=== PATIENT | male | born 1955 | race Caucasian/White ===

== ENCOUNTER 2020-05-07 18:57 | Outpatient (REF) | payer BC, SELFPAY ==
[2020-05-07 21:46] LABS: Calculated LDL 119 mg/dL (<100); Cholesterol 205 mg/dL (<200); HDL Cholesterol 42 mg/dL (40-60); Triglyceride 222 mg/dL (<150)
[2020-05-10 10:36] LABS: PSA, Screening 1.4 ng/mL (0.0-4.5)
== END 2020-05-07 19:17 ==
LOC: LBN 18:57
PROVIDERS: PCP Emergency Medicine; Visit Provider Emergency Medicine
DX: Z00.00 Encounter for general adult medical examination without abnormal findings (principal); Z13.220 Encounter for screening for lipoid disorders; Z12.5 Encounter for screening for malignant neoplasm of prostate
CPT/HCPCS: 80061; 84153

== ENCOUNTER 2024-06-01 19:08 | Emergency (ER) | payer OTHER, SELFPAY ==
[2024-06-01 19:09] VITALS: BP 127/77; PULSE 56; RESP 16; TEMP 36.8; O2SAT 98
--- NOTE | 2024-06-01 19:15 | DI.RAD_ITS ---
Exam(s) XR HUMERUS LT EXAM: XR HUMERUS LT CLINICAL HISTORY: L humerus deformity. TECHNIQUE: 2D digital imaging was performed. COMPARISON: No exams were available for comparison FINDINGS: Two views There are multiple fractures of left humerus. There is a mildly displaced transverse fracture in the proximal diaphysis and there is a separate obl ique fracture at the midshaft the humerus with some angulation and displacement. There is no dislocation of the glenohumeral joint. Bone density appears normal and there are no osse ous lesions. IMPRESSION: Bilevel fractures of the left humerus as described above. No osseous lesions. DATA REPOSITORY: RADIATION DOSE DELIVERED:
--- NOTE | 2024-06-01 19:16 | ED.GENADUL_ITS ---
Discharge Plan Disposition Patient Disposition: Home Condition: Stable Discharge Details Clinical Impression: Closed comminuted fracture of left humerus Primary Care Provider: Georgi Tidwell ED Provider: Tony Flores Home Meds and New Rx's Prescriptions: Continued famotidine 20 mg tablet 20 mg PO BID Qty: 180 3RF acetaminophen [Acetaminophen Extra Strength] 500 MG tablet 1,000 mg PO TID PRN PRNQty: 100 3RF Discharge Instructions Instructions: Acute compartment syndrome, Upper Arm Fracture ED Additional Instructions: You were seen in the emergency department for your comminuted closed fracture of your left humerus. I spoke with [facility] orthopedics, who requested additional x- rays and we placed you in a coaptation humerus splint. He will be much more comfortable to rest in a recliner chair including sleeping in a recliner at night, you need to remain in your splint / until cleared by orthopedics. Please rest ice packs around your fracture site while resting, ice to complete numbness then let rewarm, repeat as many times as desired. Please use therapeutic dosing of Tylenol (acetamenophen) & Advil (ibuprofen) in an alternating fashion as follows: Take 1000mg of Tylenol every 6 hours without missing doses- that is 4 times per day. Prison in between the Tylenol dosings, take 400-600mg of Advil also on a 6 hour schedule, that is also 4 times per day. The daily maximum dosing of Tylenol is 4000mg, and the daily maximum dosing of Advil is 2400mg. This is safe to do for weeks. Please note that some common cold medications & prescription pain medications may contain acetamenophen and you need to read OTC drug labels and factor that in to maximum daily dosings. Use the provided oxycodone sparingly for breakthrough pain, if you run out of this please contact orthopedics for further long-term pain control prescriptions as this fracture is quite painful. Please return to the emergency department at once for signs of neurovascular compromise like loss of your radial pulse in the left arm, complete numbness, skin and temperature changes.- see the attached education materials on compartment syndrome- read them and watch for any signs- present immediately to ortho-capable hospital. Referrals: [facility] [Provider Group] [facility] [Outside] (Ask for TRAUMA CLINIC) Georgi Tidwell, CARDIAC NURSE PRACTITIONER [Primary Care Provider] - Discharge Data Discharge Date/Time-TO BE ENTERED AT DEPARTURE: 06/01/24 23:10 HPI General Date/Time Provider Initiated Documentation: 06/01/24 19:16 . HPI Narrative: 68 year-old male presents to ED today by POV/ambulating with a chief complaint of fall from bed of truck about 4 feet onto left shoulder/upper arm, right hand dominant with onset just prior to arrival. Quality described as severe upper arm pain only, denies shoulder or elbow pain, endorses tingling in the forearm, no radiation to open fracture, breaks in the skin, numbness to hand, temperature changes to hand, neck pain, head strike, other trauma. Severity is described as severe. Palliating factors include nothing specific attempted. Provoking factors include nothing specific. Events leading up to the incident/Associated Symptoms: Patient endorses rotator cuff repair in remote history. Patient not anticoagulated. Related Data Home Medications ?Medication ?Instructions ?Recorded ?Confirmed acetaminophen 500 mg tablet 1,000 mg (2 x 500 mg) PO TID PRN 07/24/17 06/01/24 (Acetaminophen Extra Strength) PRN #100 tabs famotidine 20 mg tablet 20 mg PO BID #180 tabs 02/13/24 06/01/24 Previous Rx's ?Medication ?Instructions ?Recorded acetaminophen 500 mg tablet 1,000 mg (2 x 500 mg) PO TID PRN 07/24/17 (Acetaminophen Extra Strength) PRN #100 tabs famotidine 20 mg tablet 20 mg PO BID #180 tabs 02/13/24 Allergies Allergy/AdvReac Type Severity Reaction Status Date / Time No Known Allergies Allergy Verified 06/01/24 19:13 General Stated Complaint: Orthopedic DIONISIO: 4 Review of Systems All systems reviewed & are unremarkable except as noted in HPI and below Exam Narrative Exam Narrative: GENERAL APPEARANCE: Well-nourished, non-toxic, awake and alert, atraumatic, no acute distress. SKIN: Warm, pink, dry, intact, without rashes/lesions/ulcerations. HEAD: Normocephalic, atraumatic, normal hair distribution for gender/age. EYES: Normal conjunctiva, no exudates on lids/lashes. ENT: Nares patent, no circumoral cyanosis, no facial swelling NECK: Supple, trachea midline, painless cervical ROM. LUNGS/CHEST: Lungs CTA bilaterally - no rhonchi/rales/wheezes diffusely, non- labored respirations, normal A/P diameter, symmetrical expansion, no chest wall deformity HEART (CV/PV): Regular rate and rhythm without murmur, L radial pulse 2+, no peripheral edema, no JVD. ABDOMEN: Soft, non-distended, no guarding. MSK: Normal ROM, no swelling/deformity to R UE or bilat LEs, moving all extremities without weakness, no cyanosis, spine midline without tenderness, normal curvature, deformity to L upper arm with swelling, supervisor order takers strength intact L hand, sensation intact distal to elbow, no clavicle tenderness NEURO: Mental Status AAOx4 - alert to person, place, time, events No facial droop, no forehead involvement. Motor: No focal weakness - strength 5/5 in all extremities save L UE. Sensory: sensation intact to light touch globally. Gait normal: patient ambulated without ataxia into ED room. PSYCH: euthymic, cooperative, pleasant, appropriate speech Course Vital Signs Vital signs: Vital Signs Temperature 36.8 C 06/01/24 19:09 Pulse 56 L 06/01/24 19:09 Respiratory Rate 16 06/01/24 19:09 Blood Pressure 127/77 06/01/24 19:09 Pulse Oximetry 98 06/01/24 19:09 Temperature 36.8 C 06/01/24 19:09 Pulse 56 L 06/01/24 19:09 Respiratory Rate 16 06/01/24 19:09 Blood Pressure 127/77 06/01/24 19:09 Pulse Oximetry 98 06/01/24 19:09 Pain Level 8 06/01/24 19:09 Procedures Other Description: Patient was placed in a long-arm coaptation splint after padding the upper arm from forearm through shoulder extensively I used a 5 x 30 piece of Ortho-Glass to make a stirrup around the upper arm and apply gentle pressure inward until the splint had hardened and then wrapped it with Bill wrap placed him in a shoulder immobilizer in 90 degrees flexion at the elbow, he was neurovascularly intact with intact left radial pulse and supervisor order takers strength and sensation in the left hand pre and post splint application, no complications during splinting. Medical Decision Making This dictation utilizes [id number] dictation software and may contain unedited grammatical errors. 68 year-old male presents to ED today by POV/ambulating with a chief complaint of fall from bed of truck about 4 feet onto left shoulder/upper arm, right hand dominant with onset just prior to arrival. Quality described as severe upper arm pain only, denies shoulder or elbow pain, endorses tingling in the forearm, no radiation to open fracture, breaks in the skin, numbness to hand, temperature changes to hand, neck pain, head strike, other trauma. Severity is described as severe. Palliating factors include nothing specific attempted. Provoking factors include nothing specific. Events leading up to the incident/Associated Symptoms: Patient endorses rotator cuff repair in remote history. Patients' medical history: Rosacea, hiatal hernia, COPD, BPH, status post cholecystectomy. Family and social history: Lives at home with his , no recent travel, no sick cont acts. Pertinent exam findings / vital signs include left radial pulse 2+, supervisor order takers strength 4+ out of 5 due to pain, no sensory deficit of forearm, severe tenderness in the upper left arm, no crepitus to elbow or clavicle, no midline vertebral tenderness, no other signs of trauma. Differential / pathologies of concern include fracture, hematoma. Diagnostic studies of: -XR left humerus-shows comminuted closed left humerus fracture. -Per [facility] trauma I ordered XR shoulder and elbow as well as post coaptation splint application XRs Interventions of: -Provided 650mg APAP IV, 15mg Toradol IV, 5mg Oxycodone PO. Oxycodone to go ED Course/Assessment/Plan: 60-year-old male fell from a truck injuring his left humerus, new comminuted complex fracture of the humerus only without other associated trauma, he is neurovascularly intact in left hand and forearm, he is right-hand dominant, he tolerated coaptation splint well, he is welcome to follow-up with our orthopedic team tomorrow by phone to see if they can handle this case but I did consult with [facility] trauma team who can see the patient later this week in trauma clinic. He was sent home with short to go pack of oxycodone, I stressed he needs to aggressively place ice packs around his coaptation splint to help with swelling control and counseled him for a considerable length watch for any signs of compartment syndrome and return immediately to a hospital with orthopedic capability for fasciotomy for any such symptoms. Post-splint application shows persistent angulation- needs ortho f/u. Findings not consistent with open fracture, head trauma, neurovascular compromise. Disposition of Closed Comminuted Fracture of Left Humerus. Patient verbalized understanding of the plan and return to ED criteria and engaged in shared decision making. Medical Records Medical records reviewed: Yes I reviewed the patient's medical records. Imaging Data Radiologic Study: Attestation: I personally reviewed and interpreted this imaging study as follows: Imaging: X-Ray Radiologist's impression: Exam: XR Left Humerus Exam date and time: 06/01/2024 7:50 PM Age: 68 years old Clinical indication: Injury or trauma; Blunt trauma (contusions or hematomas); Arm, upper; Left; Patient HX: L humerus deformity, S/P fall TECHNIQUE: Imaging protocol: Radiologic exam of the left humerus. Views: 2 or more views. COMPARISON: CR CHEST 2 VIEWS PA,LAT 10/22/2017 9:36 AM FINDINGS: Bones/joints: Multifocal fracture of the left humerus. Proximal humeral metaphyseal fracture. Distal humeral diametaphyseal fracture. There is displacement and angulation of the distal fracture. The distal fracture has an oblique orientation. The proximal fracture is more transverse in orientation. Proximal fracture with minor displacement. No dislocation of glenohumeral joint. Subcortical cysts are suggested of the humeral head consistent with chronic degenerative change. Soft tissues: No soft tissue gas or foreign body. IMPRESSION: Multipart left humeral shaft fracture. Dictated and Authenticated by: Gopal Fields MD. Radiologic Study #2: Attestation: I personally reviewed and interpreted this imaging study as follows: Imaging: X-Ray Radiologist's impression: Exam: XR Left Shoulder Exam date and time: 06/01/2024 9:19 PM Age: 68 years old Clinical indication: Injury or trauma; Fall; Blunt trauma (contusions or hematomas); Left; Injury date: 06/01/24; Injury details: Fell 4 ft out of truck; Prior surgery; Surgery date: 6+ months; Surgery type: Shoulder surgery TECHNIQUE: Imaging protocol: Radiologic exam of the left shoulder. Views: 2 or more views. COMPARISON: CR XR HUMERUS LT 06/01/2024 7:50 PM FINDINGS: Bones/joints: Proximal humeral fracture at the proximal humeral metaphysis. This is a transversely oriented fracture with mild displacement. No dislocation of glenohumeral joint. Subcortical cystic type lesions of the humeral head suggesting chronic degeneration. AC joint degenerative disease of severe appearance. No clavicular fracture or AC separation. No scapular fracture evident. Left upper ribs are unremarkable. Lungs: Left upper lung field is clear. Soft tissues: No soft tissue foreign body or soft tissue emphysema. IMPRESSION: 1. Proximal humeral metaphyseal transverse fracture with mild displacement. 2. No glenohumeral dislocation. 3. Severe AC joint degeneration. Dictated and Authenticated by: Gopal Fields MD. Radiologic Study #3: Attestation: I personally reviewed and interpreted this imaging study as follows: Imaging: X-Ray Radiologist's impression: Exam: XR Left Elbow Exam date and time: 06/01/2024 9:23 PM Age: 68 years old Clinical indication: Injury or trauma; Fall; Blunt trauma (contusions or hematomas); Elbow; Left; Injury date: 06/01/24; Injury details: Fell out of truck 4 ft TECHNIQUE: Imaging protocol: Radiologic exam of the left elbow. Views: 3 or more views. COMPARISON: CR XR SHOULDER LT COMPLETE 2+V 06/01/2024 9:19 PM FINDINGS: Bones/joints: Displaced distal humeral diametaphyseal oblique fracture. Elbow joint is in alignment. No dislocation. No acute fracture of the proximal radius or ulna. No fat pad elevation. Soft tissues: No acute soft tissue changes in the region of the elbow. IMPRESSION: 1. Intact elbow joint. 2. Distal humeral diametaphyseal displaced oblique fracture. Dictated and Authenticated by: Gopal Fields MD. Radiologic Study #4: Attestation: I personally reviewed and interpreted this imaging study as follows: Imaging: X-Ray Radiologist's impression: Exam: XR Left Humerus Exam date and time: 06/01/2024 10:47 PM Age: 68 years old Clinical indication: Screening exam; Post splint application TECHNIQUE: Imaging protocol: Radiologic exam of the left humerus. Views: 2 or more views. COMPARISON: CR XR HUMERUS LT 06/01/2024 7:50 PM FINDINGS: Bones/joints: Splint applied to the left upper arm. Humeral fractures are still identified. There is angulation at the distal humeral fracture. Orthopedic surgeon consultation is recommended. Soft tissues: Normal. IMPRESSION: 1. Posterior splint applied to the arm and elbow region. 2. Fracture planes of the humerus are still identified. There is persistent displacement and angulation of the distal fracture. Dictated and Authenticated by: Gopal Fields MD. Quality:SDOH Health Related Social Needs: No Data to Display PFSH All Active Problems (Updated 06/01/24 @ 21:33 by LAZARO Swanson) Closed comminuted fracture of left humerus (Acute) Smoker (Acute) Quit approximately 6 to 8 years ago from 2021. 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 2014 ED (erectile dysfunction) (Acute) Chronic obstructive lung disease (Acute) 12/08; NEG STRESS TEST Cataract (Acute) Benign prostatic hyperplasia (Acute) Medical History Tear of left rotator cuff Repaired 2017 Surgical History Status post cholecystectomy STRESS TEST (~12/2006) NEG EGD - MAC (~07/2009) Colonoscopy - MAC 07/14 Cholecystectomy (~2000) GIBRAN Family History Mother , AGE 96 No problems noted. Father , AGE 62 Asthma Sister No problems noted. Sister , AGE 60 Ovarian cancer Sister , AGE 64 Brain cancer Sister No problems noted. Brother , AGE 65 Lung cancer Social History Smoking/Tobacco Use Status: Current-Occasional Tobacco: How many years used: 30 Quit status: has quit before Second Hand Exposure: Yes Smoking risk assessment performed?: Yes Alcohol Intake: former Drug use: Never Substance use type: does not use Adopted: No Caregiver/Support person: No Foster care: No Household members: spouse Housing: house Number of Children: 2 number of grandchildren: 3 Communication Needs: Hard of Hearing Education Level: high school Do you need help understanding health information?: Rarely current occupation: [employer] Pets and animals: Yes Pets and animals: dog(s) Sexually active: No Do you think of yourself as: straight/heterosexual Current gender identity: male What is your relationship status?: How often do you talk on the phone with friends or family?: once per week How often do you get together with friends or relatives?: decline to answer How often do you attend nondenominational or caodaism services?: decline to answer Do you belong to any clubs or organized social groups?: no Panel score (0-1 are the most socially isolated patients): 1 What type of physical activity do you participate in: other Details: work Duration: < 15 minutes/day Frequency: 1-2 times per week Sybil/Baptist: No preference Special sybil needs: No Agree to transfusion: No Seatbelt use: sometimes Helmet use: No Drive intox or ride w/intox taxi cab driver: No Working smoke detector in home: Yes Carbon monox detector in home: No Firearms in home: Yes Firearms unloaded and locked: Yes Do you feel safe at home: Yes Do you feel safe in your relationship?: Yes Victim of physical abuse: No Victim of emotional abuse: No Victim of sexual abuse: No
[2024-06-01] MEDS: ACETAMINOPHEN 650 MG/65 ML BAG 260 MG IVPB (19:38)
[2024-06-01] MEDS: Ketorolac 15 MG/ML VIAL IVP (19:38)
--- OUTSIDE RECORDS SUMMARY | 2024-06-01 20:33 | XMS_ITS | Encounter Summary ---
Author Organization [facility] Address [facility] [place] [address] Care Team Providers Care Lining Presser Name Role Phone Tuan Castro MD, John Primary Care Provider [phone] Encounter Details Date Type Department Care Team (Late st Contact Info) Description 06/01/2024 8:10 PM EST Ancillary Procedure Radiology Library at [facility] [place] [id number] Tacos Lockhart MD [facility] [place] [address] Arrived Social History Tobacco Use Types Packs/Day Years Used Date Smoking Tobacco: Never Assessed Sex and Gender Information Value Date Recorded Sex Assigned at Not on file Gender Identity Not on file Sexual Orientation Not on file documented as of this encounter Plan of Treatment Not on file documented as of this encounter Procedures Procedure Name Priority Date/Time Associated Diagnosis Comments FILM LIBRARY STORAGE ONLY DX UPPER EXTREMITY Routine 06/01/2024 8:09 PM EST documented in this encounter Results * Film Library- Storage Only DX Upper Extremity (06/01/2024 8:09 PM EST) Narrative [facility] - 06/01/2024 8:09 PM EST This exam is auto-finalizing. It's purpose is for storage only. Tacos Lockhart MD IMG FILM LIBRARY ORD ERABLES [place], [place] documented in this encounter Visit Diagnoses Not on filedocumented in this encounter Care Teams Lining Presser Relationship Specialty Start Date End Date Dhaval Dickerson MD [address] [place] [address] PCP - General 11/23/10 documented as of this encounter
--- OUTSIDE RECORDS SUMMARY | 2024-06-01 20:33 | XMS_ITS | Referral Summary ---
Author Organization [facility] Address [address] [place] [address] Care Team Providers Care Computer Discovery Teacher Name Role Phone Unknown, Provider Primary Care Provider Unava ilable Social History Tobacco Use Types Packs/Day Years Used Date Smoking Tobacco: Never Assessed Sex and Gender Information Value Date Recorded Sex Assigned at Not on file Legal Sex Male 18:48 EST Gender Identity Not on file Sexual Orientation Not on file Plan of Treatment Not on file Care Teams Computer Discovery Teacher Relationship Specialty Start Date End Date Unknown, Provider, PCP - General 07/07/09
--- OUTSIDE RECORDS SUMMARY | 2024-06-01 20:33 | XMS_ITS | Clinical Summary ---
Author Organization [facility] Address [address] [place] [address] Care Team Providers Care General Ii Farmworker Name Role Phone Unknown, Provider MD Primary Care Provider Unava ilable Social History Tobacco Use Types Packs/Day Years Used Date Smoking Tobacco: Never Assessed Sex and Gender Information Value Date Recorded Sex Assigned at Not on file Legal Sex Male 18:48 EST Gender Identity Not on file Sexual Orientation Not on file Plan of Treatment Health Maintenance Due Date Last Done Comments Hepatitis C Screen 1955 Fall Risk Screening 11/17/2020 COVID-19 Vaccine (2023-25 season) 2024 RSV Immunization ( o r 60+ Years) (1 - 1-dose 75+ series) 11/17/2030 Care Teams General Ii Farmworker Relationship Specialty Start Date End Date Unknown, Provider, PCP - General 07/07/09
--- OUTSIDE RECORDS SUMMARY | 2024-06-01 20:33 | XMS_ITS | Encounter Summary ---
Author Organization [facility] Address [address] [place] [id number] Care Team Providers Care Institutional Research Coordinator Name Role Phone Unknown, Provider Primary Care Provider Unava ilable Encounter Details Date Type Department Care Team (Late st Contact Info) Description 05/08/2020 Lab Requisition [facility] Pathology & Laboratory Medicine - [address] [id number] Outr Resulting Lab, Provider Social History Tobacco Use Types Packs/Day Years [...] Procedure Name Priority Date/Time Associated Diagnosis Comments PSA TOTAL, DIAGNOSTIC Routine 05/07/2020 11:50 EST documented in this encounter Results * PSA TOTAL, DIAGNOSTIC (05/07/2020 11:50 EST) PSA 1.4 0.0 - 4.5 ng/mL 05/10/2020 10:30 EST [facility] Blood VENOUS BLOOD / Unknown 05/07/2020 11:50 EST 05/09/2020 17:19 EST Narrative [facility] - 05/10/2020 10:30 EST NOTE: Serum PSA concentration should not be interpreted as absolute evidence for the presence or absence of malignant disease. Assayed on Siemens ADVIA Attune Liveaur XPT using chemiluminescent technology.??Values obtained by using different assay methods cannot be used interchangeably. us Provider Outr Resulting Lab CHEMISTRY & BLOOD GA S ORDERABLES Final Result [facility] [address] [place] [address] documented in this encounter Visit Diagnoses Not on filedocumented in this encounter Care Teams Institutional Research Coordinator Relationship Specialty Start Date End Date Unknown, Provider, PCP - General 07/07/09 documented as of this encounter
--- OUTSIDE RECORDS SUMMARY | 2024-06-01 20:33 | XMS_ITS | Encounter Summary ---
Author Organization [facility] Address [address] [place] [address] Care Team Providers Care Private Equity Associate Name Role Phone Unknown, Provider Primary Care Provider Unava ilable Encounter Details Date Type Department Care Team (Late st Contact Info) Description 07/07/2009 Orders Only [address] [address] Richy Cohen MD [address] [place] [address] Social History Tobacco Use Types Packs/Day Years [...] Procedure Name Priority Date/Time Associated Diagnosis Comments SURGICAL PATHOLOGY Routine 07/07/2009 0:00 EST documented in this encounter Results * SURGICAL PATHOLOGY (07/07/2009 0:00 EST) Pathology Report: SURGICAL PATHOLOGY REPORT ? Reports generated via electronic interface contain original data; ? however they are lacking the format of the original report. ? Caution should be taken when reading/interpreti ng unformatted reports. ? Name: ? DAMIAN, NESSA Harrison ? Accession #: ? [id number] ? : ? 1955 (Age: 53) ??M ? Collect Date: ? 07/07/2009 ? Location: ? [facility] ? Receive Date: ? 07/07/2009 ? Provider: RICHY WALKO MD ? Copy to: NOAH F DEVENDRA DO ? Final Pathologic Diagnosis: ? A. ?Duodenum, 2nd portion, biopsy: ? 1. ?Focal epithelial foveolar metaplasia. ??See comment. ? B. ?Stomach, antrum, biopsy: ? 1. ?Antral mucosa with reactive foveolar hyperplastic changes, ? suggestive of reactive gastropathy. ? 2. ? No Helicobacter pylori-like organisms identified on H+E-stained sections. C. ?Stomach, body, biopsy: ? 1. ?Oxyntic mucosa with capillary congestion, otherwise unremarkable. ?? D. ?Ileocecal valve, biopsy: ? 1. ?Intestinal mucosa with focal acute inflammation. ? 2. ? Colonic mucosa with no specific histopathologic diagnosis. ? E. ?Colon, descending, polyp, biopsy: ? 1. ?Tubular adenoma (1 piece); no high grade dysplasia. ? 2. ?? Colonic mucosa (1 piece) with no specific histopathologic diagnosis. ? Comment: ? In specimen (A), the presence of foveolar metaplasia raises the possibility of peptic duodenitis. ??(Dr. Taylor)/kmm ? Document reviewed and electronically signed by: ? Chato Ortega MD ? Report ??Date: 07/12/2009 16:51 ? By the signature above, the attending physician certifies that he/she has ? personally conducted a gross and/or microscopic examination of the described ? specimens and rendered or confirmed the above diagnosis. ? Specimen(s) Received: ? A. ?Bx duodenum 2nd portion ? B. ? Bx gastric antrum ? C. ? Bx gastric body ? D. ? Bx ileocecal valve ? E. ? Descending colon polyp ? Clinical History: ? Dyspepsia; A-C ??EGD; D+E - colonoscopy ? Gross Description: ? Received in [facility] solution labelled Damian, Nessa and biopsy ? duodenum 2nd portion are two pink-montelongo irregular soft tissues, each 0.3 x 0.2 x 0.2 cm. ??Submitted in toto as (A). ? Received in [facility]'s solution labelled Damian, Nessa and biopsy gastric ?? antrum are three pink-montelongo irregular soft tissues ranging from 0.1 x 0.1 x 0.1 ?? cm to 0.2 x 0.2 x 0.2 cm. ??Submitted in toto as (B). ? Received in [facility]'s solution labelled Damian, Nessa and biopsy gastric ?? body are two pink-montelongo irregular soft tissues, 0.2 x 0.2 x 0.2 cm and 0.5 x 0.2 x 0.1 cm. ??Submitted in toto as (C). ? Received in [facility]'s solution labelled Nessa Salgado and biopsy ileocecal valve are two pink-montelongo irregular soft tissues, each 0.3 x 0.2 x 0.2 cm. ? Submitted in toto as (D). ? Received in [facility]'s solution labelled Nessa Salgado and descending colon polyp are two pink-montelongo irregular soft tissues, 0.2 x 0.2 x 0.2 cm and 0.3 x 0.2 x 0.2 cm. ??Submitted in toto as (E). ??(Emily Driscoll)/delia ? End of Report ? [facility] 07/07/2009 07/07/2009 17: 54 EST us Richy Cohen MD PATHOLOGY ORDERABLES Final Resul t [facility] [address] [place] [address] documented in this encounter Visit Diagnoses Not on filedocumented in this encounter Care Teams Private Equity Associate Relationship Specialty Start Date End Date Unknown, Provider, PCP - General 07/07/09 documented as of this encounter
--- OUTSIDE RECORDS SUMMARY | 2024-06-01 20:33 | XMS_ITS | Clinical Summary ---
Author Organization [facility] [place] [address] Care Team Providers Care [employer] Sales Engineer Name Role Phone Tuan Castro MD, John Primary Care Provider [phone] Allergies No known active allergies Encounters Date Type Department Care Team Description 06/01/2024 8:10 PM EST Ancillary Procedure Radiology Library at [facility] [place] [address] Tacos Lockhart MD Arrived from Last 3 Months Social History Tobacco Use Types Packs/Day Years Used Date Smoking Tobacco: Never Assessed Sex and Gender Information Value Date Recorded Sex Assigned at Not on file Gender Identity Not on file Sexual Orientation Not on file Plan of Treatment Health Maintenance Due Date Last Done Comments CT Colonography 1955 Colonoscopy 1955 Colorectal Cancer Screening 1955 FIT DNA 1955 FIT 1955 Sigmoidoscopy (10 year) with FIT yearly 1955 Sigmoidoscopy 1955 Hepatitis C Screening 11/17/1973 Lipid Screening 11/17/1973 Tetanus/Diphtheria/Pertussis Vaccines (1 - Tdap) 11/17 Pneumoccocal Vaccine: 65+ (1 of 1 - PCV) 11/17/2005 Zoster vaccine (1 of 2) 11/17/2005 Advance Directive 11/17/2010 Covid-19 Vaccine (1 - season) 2024 Influenza (Flu) vaccine (1 o f 1 - Influenza standard series) 02/03/2024 Procedures Procedure Name Priority Date/Time Associated Diagnosis Comments FILM LIBRARY STORAGE ONLY DX UPPER EXTREMITY Routine 06/01/2024 8:09 PM EST from Last 3 Months Results * Film Library- Storage Only DX Upper Extremity (06/01/2024 8:09 PM EST) Narrative [facility] - 06/01/2024 8:09 PM EST This exam is auto-finalizing. It's purpose is for storage only. Tacos Lockhart MD IMG FILM LIBRARY ORD ERABLES [place], [place] from Last 3 Months Care Teams [employer] Products Sales Engineer Relationship Specialty Start Date End Date Dhaval Dickerson MD [address] [place] [address] PCP - General 04/26/10
--- NOTE | 2024-06-01 21:00 | DI.RAD_ITS ---
Exam(s) XR ELBOW LT COMPLETE EXAM: XR ELBOW LT COMPLETE CLINICAL HISTORY: humerus fracture, per trauma team request. TECHNIQUE: 2D digital imaging was performed. COMPARISON: No exams were available for comparison FINDINGS: Two views Portable AP and lateral views reveal a displaced oblique fracture in the diaphysis of the humerus see n in the peripheral aspect of the field of view here. There is no fracture of the level the elbow maikel int itself on these images and no obvious elbow joint effusion. No swelling of olecranon fossa. No osseous lesions. IMPRESSION: Displaced oblique fracture in the diaphysis of the humerus. No fractures at the elbow level seen on these 2 portable views. DATA REPOSITORY: RADIATION DOSE DELIVERED:
--- NOTE | 2024-06-01 21:00 | DI.RAD_ITS ---
Exam(s) XR SHOULDER LT COMPLETE 2+V EXAM: XR SHOULDER LT COMPLETE 2+V CLINICAL HISTORY: humerus fracture, per trauma team request. TECHNIQUE: 2D digital imaging was performed. COMPARISON: CR RIGHT SHOULDER COMPLETE from 05/01/2012 FINDINGS: 3 views There is a mildly displaced acute fracture the proximal diaphysis of the humerus. There is no disloc ation of glenohumeral joint. No osseous lesions evident. No adjacent rib fracture seen. Multiple small degenerative subarticular cysts are noted in the humeral head. Subacromial space is n ot diminished. AC joint degenerative changes also noted. IMPRESSION: There is a E mildly displaced transverse fracture in the proximal left humerus diaphysis. DATA REPOSITORY: RADIATION DOSE DELIVERED:
[2024-06-01] MEDS: oxyCODONE 5 MG TAB PO (21:16)
--- NOTE | 2024-06-01 21:23 | DI.VRAD_ITS ---
PROCEDURE INFORMATION: Exam: XR Left Humerus Exam date and time: 06/01/2024 7:50 PM Age: 68 years old Clinical indication: Injury or trauma; Blunt trauma (contusions or hematomas); Arm, upper; Left; Patient HX: L humerus deformity, S/P fall TECHNIQUE: Imaging protocol: Radiologic exam of the left humerus. Views: 2 or more views. COMPARISON: CR CHEST 2 VIEWS PA,LAT 10/22/2017 9:36 AM FINDINGS: Bones/joints: Multifocal fracture of the left humerus. Proximal humeral metaphyseal fracture. Distal humeral diametaphyseal fracture. There is displacement and angulation of the distal fracture. The distal fracture has an oblique orientation. The proximal fracture is more transverse in orientation. Proximal fracture with minor displacement. No dislocation of glenohumeral joint. Subcortical cysts are suggested of the humeral head consistent with chronic degenerative change. Soft tissues: No soft tissue gas or foreign body. IMPRESSION: Multipart left humeral shaft fracture. Dictated and Authenticated by: Gopal Fields MD. Ordering:CHAR Jimenez MD
--- NOTE | 2024-06-01 21:40 | DI.VRAD_ITS ---
PROCEDURE INFORMATION: Exam: XR Left Shoulder Exam date and time: 06/01/2024 9:19 PM Age: 68 years old Clinical indication: Injury or trauma; Fall; Blunt trauma (contusions or hematomas); Left; Injury date: 06/01/24; Injury details: Fell 4 ft out of truck; Prior surgery; Surgery date: 6+ months; Surgery type: Shoulder surgery TECHNIQUE: Imaging protocol: Radiologic exam of the left shoulder. Views: 2 or more views. COMPARISON: CR XR HUMERUS LT 06/01/2024 7:50 PM FINDINGS: Bones/joints: Proximal humeral fracture at the proximal humeral metaphysis. This is a transversely oriented fracture with mild displacement. No dislocation of glenohumeral joint. Subcortical cystic type lesions of the humeral head suggesting chronic degeneration. AC joint degenerative disease of severe appearance. No clavicular fracture or AC separation. No scapular fracture evident. Left upper ribs are unremarkable. Lungs: Left upper lung field is clear. Soft tissues: No soft tissue foreign body or soft tissue emphysema. IMPRESSION: 1. Proximal humeral metaphyseal transverse fracture with mild displacement. 2. No glenohumeral dislocation. 3. Severe AC joint degeneration. Dictated and Authenticated by: Gopal Fields MD. Ordering:CHAR Jimenez MD
--- NOTE | 2024-06-01 21:41 | DI.VRAD_ITS ---
PROCEDURE INFORMATION: Exam: XR Left Elbow Exam date and time: 06/01/2024 9:23 PM Age: 68 years old Clinical indication: Injury or trauma; Fall; Blunt trauma (contusions or hematomas); Elbow; Left; Injury date: 06/01/24; Injury details: Fell out of truck 4 ft TECHNIQUE: Imaging protocol: Radiologic exam of the left elbow. Views: 3 or more views. COMPARISON: CR XR SHOULDER LT COMPLETE 2+V 06/01/2024 9:19 PM FINDINGS: Bones/joints: Displaced distal humeral diametaphyseal oblique fracture. Elbow joint is in alignment. No dislocation. No acute fracture of the proximal radius or ulna. No fat pad elevation. Soft tissues: No acute soft tissue changes in the region of the elbow. IMPRESSION: 1. Intact elbow joint. 2. Distal humeral diametaphyseal displaced oblique fracture. Dictated and Authenticated by: Gopal Fields MD. Ordering:CHAR Jimenez MD
--- NOTE | 2024-06-01 22:15 | DI.RAD_ITS ---
Exam(s) XR HUMERUS LT EXAM: XR HUMERUS LT CLINICAL HISTORY: post-splint application 2 view. TECHNIQUE: 2D digital imaging was performed. COMPARISON: CR,XR XR HUMERUS LT from 06/01/2024 FINDINGS: Two views: Post reduction The previously described acute fractures in the proximal diaphysis and mid diaphysis are again noted. There is persistent displacement and angulation of the more distal the 2 fractures. No fracture se en the level the elbow. IMPRESSION: Posterior splint. By level fractures again noted. DATA REPOSITORY: RADIATION DOSE DELIVERED:
[2024-06-01] MEDS: oxyCODONE 5 MG TAB 60 MG PO (22:53)
--- NOTE | 2024-06-01 22:54 | DI.VRAD_ITS ---
PROCEDURE INFORMATION: Exam: XR Left Humerus Exam date and time: 06/01/2024 10:47 PM Age: 68 years old Clinical indication: Screening exam; Post splint application TECHNIQUE: Imaging protocol: Radiologic exam of the left humerus. Views: 2 or more views. COMPARISON: CR XR HUMERUS LT 06/01/2024 7:50 PM FINDINGS: Bones/joints: Splint applied to the left upper arm. Humeral fractures are still identified. There is angulation at the distal humeral fracture. Orthopedic surgeon consultation is recommended. Soft tissues: Normal. IMPRESSION: 1. Posterior splint applied to the arm and elbow region. 2. Fracture planes of the humerus are still identified. There is persistent displacement and angulation of the distal fracture. Dictated and Authenticated by: Gopal Fields MD. Ordering:CHAR Jimenez MD
[2024-06-01 23:05] VITALS: BP 131/73; PULSE 67; RESP 18; O2SAT 96
[2024-06-01 23:07] VITALS: BP 131/73; PULSE 67; RESP 18; TEMP 36.8; O2SAT 96
== END 2024-06-01 23:10 | disposition home or self-care (01) ==
PROVIDERS: Emergency Provider Physician Assistant; PCP Nurse Practitioner Family
DX: S42.292A Other displaced fracture of upper end of left humerus, initial encounter for closed fracture (principal); S42.332A Displaced oblique fracture of shaft of humerus, left arm, initial encounter for closed fracture; F17.200 Nicotine dependence, unspecified, uncomplicated; W17.89XA Other fall from one level to another, initial encounter; Y93.89 Activity, other specified; Y92.89 Other specified places as the place of occurrence of the external cause
CPT/HCPCS: 29105; 36415; 96365; 96375; 99283; 99284; 73030; 73060; 73080; J0131; J1885

== ENCOUNTER 2025-04-03 00:52 | Outpatient (CLI) | payer BC, SELFPAY ==
[2025-04-03 15:13] LABS: Anion Gap 5.5 mmol/L (3-11); BUN 18 mg/dL (7-18); CO2 28.5 mmol/L (21.0-32.0); Calcium 8.7 mg/dL (8.5-10.1); Chloride 105 mmol/L (98-107); Cholesterol 192 mg/dL (<200); Glucose 92 mg/dL (74-106); HDL Cholesterol 53 mg/dL (>or=40); Potassium 4.3 mmol/L (3.5-5.1); Sodium 139 mmol/L (136-145)
== END 2025-04-03 00:53 | disposition home or self-care (01) ==
LOC: LOS 00:52
PROVIDERS: PCP Nurse Practitioner Family; Visit Provider Nurse Practitioner Family
DX: Z13.1 Encounter for screening for diabetes mellitus (principal); Z13.6 Encounter for screening for cardiovascular disorders
CPT/HCPCS: 36415; 80048; 80061